=== PATIENT | female | born 1965 | race Caucasian/White ===

== ENCOUNTER 2017-10-24 00:04 | Emergency (ER) | payer MEDICAID, OTHER ==
[2017-10-24 00:04] VITALS: BMI 26.4
[2017-10-24] MEDS ORDERED: Sodium Chloride 0.9% 1,000 ML IV ONE (00:17)
--- NOTE | 2017-10-24 00:17 | C.PDOC ---
History Of Present Illness Patient states that she had a headache and took a tylenol with codeine, after which she developed sever mid epigastric pain, She has also consumed some spicy chips. No nausea or vomiting.Non radiating pain. 11/26. Has history of gastritis Time Seen by Provider: 10/24/17 00:06 Chief Complaint (Nursing): Abdominal Pain History Per: Patient History/Exam Limitations: no limitations Onset/Duration Of Symptoms: Hrs Current Symptoms Are (Timing): Still Present Context: Food, Other (tylenol and spicy chips) Severity: Moderate Pain Scale Rating Of: 5 Location Of Pain/Discomfort: Epigastric Radiation Of Pain To:: None Quality Of Discomfort: Sharp, Burning Associated Symptoms: denies: Fever, Chills, Nausea, Vomiting Exacerbating Factors: Food Alleviating Factors: None Last Bowel Movement: Yesterday Recent travel outside of the [place]: No Additional History Per: Family Abnormal Vaginal Bleeding: No Past Medical History Reviewed: Historical Data, Nursing Documentation, Vital Signs Vital Signs: Last Vital Signs Temp 97.5 F L 10/24/17 00:09 Pulse 70 10/24/17 00:09 Resp 16 10/24/17 00:09 BP 123/74 10/24/17 00:09 Pulse Ox 100 10/24/17 00:35 - Medical History PMH: Gall Bladder Disease (cholecystectomy 2 yrs. ago) Denies: Chronic Kidney Disease Surgical History: Cholecystectomy - [facility] Procedures LAPAROSCOPIC CHOLECYSTECTOMY (10/17/13) LAPAROSCOPIC ROBOTIC ASSISTED PROCEDURE (10/17/13) Family History: States: No Known Family Hx - Social History Hx Tobacco Use: No Hx Alcohol Use: No Hx Substance Use: No - Immunization History Hx Tetanus Toxoid Vaccination: No Hx Influenza Vaccination: No Hx Pneumococcal Vaccination: No Review Of Systems Constitutional: Negative for: Fever, Chills Eyes: Negative for: Redness ENT: Negative for: Throat Pain Cardiovascular: Negative for: Chest Pain Respiratory: Negative for: Shortness of Breath Gastrointestinal: Positive for: Abdominal Pain. Negative for: Nausea, Vomiting Genitourinary: Negative for: Dysuria Musculoskeletal: Negative for: Back Pain Skin: Negative for: Rash Neurological: Negative for: Weakness Psych: Negative for: Anxiety Physical Exam - Physical Exam Appears: Non-toxic Skin: Warm, Dry Head: Normacephalic Eye(s): bilateral: Normal Inspection Oral Mucosa: Moist Neck: Supple Chest: Symmetrical Cardiovascular: Rhythm Regular Respiratory: No Rales, No Rhonchi, No Wheezing Gastrointestinal/Abdominal: Bowel Sounds (tympanic to percussion), Soft, Tenderness (mid epigastric), No Distention, No Guarding, No Rebound Back: Normal Inspection Extremity: Normal ROM Extremity: Bilateral: Atraumatic Pulses: Left Dorsalis Pedis: Normal, Right Dorsalis Pedis: Normal Neurological/Psych: Oriented x3, Normal Speech, Normal Cognition Gait: Steady ED Course And Treatment - Laboratory Results Result Diagrams: 10/24/17 00:29 10/24/17 00:29 O2 Sat by Pulse Oximetry: 100 Pulse Ox Interpretation: Normal - Radiology CXR: Interpreted by Me, Viewed By Me CXR Interpretation: No: Infiltrates, Fracture, Pnemothorax Reevaluation Time: 02:37 Reassessment Condition: Improved Disposition Counseled Patient/Family Regarding: Studies Performed, Diagnosis, Need For Followup - Disposition Referrals: [facility] [Outside] [facility] [Outside] Daniel Garza MD [Staff Provider] - Disposition: HOME/ ROUTINE Disposition Time: 00:17 Condition: FAIR Additional Instructions: Please return if symptoms recur Prescriptions: Pantoprazole Sodium [Protonix] 20 mg PO DAILY #20 ect Instructions: Gastritis (DC), Ulcer and Gastritis Diet Forms: [employer] (Malay) Print Language: UPPER SORBIAN - Clinical Impression Clinical Impression: Abdominal pain, Gastritis
[2017-10-24] MEDS ORDERED: Sodium Chloride 0.9% 1,000 ML ONE (00:23)
[2017-10-24 00:33] LABS: BASO % 0.2 % (0.0-2.0); EOS # 0.1 K/uL (0.0-0.7); EOS % 0.8 % (0.0-4.0); HEMOGLOBIN 13.2 g/dL (11.0-16.0); LYMPH # 2.8 K/uL (1.0-4.3); LYMPH % 26.6 % (20.0-40.0); MEAN CELL VOLUME 83.3 fL (81.0-99.0); MEAN CORPUSCULAR HEMOGLOBIN 29.3 pg (27.0-31.0); MEAN CORPUSCULAR HGB CONC 35.2 g/dL (33.0-37.0); MEAN PLATELET VOLUME 8.3 fL (7.2-11.7); MONO # 0.7 K/uL (0.0-0.8); MONO % 6.4 % (0.0-10.0); NEUT # 6.9 K/uL (1.8-7.0); RBC 4.5 Mil/uL (3.80-5.20); WHITE BLOOD COUNT 10.5 K/uL (4.8-10.8)
[2017-10-24 00:41] LABS: PROTHROMBIN TIME 11.2 SECONDS (9.7-12.2)
[2017-10-24 00:45] LABS: ALB/GLOB RATIO 1.4 (1.0-2.1); ALBUMIN 4.3 g/dL (3.5-5.0); ALT/SGPT 145 U/L (9-52); AST/SGOT 215 U/L (14-36); BLOOD UREA NITROGEN 12 mg/dL (7-17); CALCIUM 9.2 mg/dl (8.6-10.4); GFR AFRICAN-AMERICAN > 60; GFR NON-AFRICAN AMERICAN > 60; LIPASE 152 U/L (23-300)
[2017-10-24] MEDS ORDERED: Iodixanol 320 MG/ML 100 ML BOTTLE IV ONE (01:16)
--- NOTE | 2017-10-24 02:22 | CT ---
EXAM: CT Abdomen and Pelvis With Intravenous Contrast CLINICAL HISTORY: 52 years old, female; Pain; Abdominal pain; Prior surgery; Surgery type: Cholecystectomy and hysterectomy; Additional info: Abd pain, elevated liver enzymes TECHNIQUE: Axial computed tomography images of the abdomen and pelvis with intravenous contrast. All CT scans at this facility use one or more dose reduction techniques, viz.: automated exposure control; ma/kV adjustment per patient size (including targeted exams where dose is matched to indication; i.e. head); or iterative reconstruction technique. 588 images are submitted. Coronal and sagittal reformatted images were created and reviewed. Axial reformatted images were created and reviewed. CONTRAST: 100 mL of [id number] administered intravenously. COMPARISON: No relevant prior studies available. FINDINGS: Lower thorax: There is bibasilar atelectasis. ABDOMEN: Liver: Mild fatty infiltration of the liver.. No mass. Gallbladder and bile ducts: Cholecystectomy. Pancreas: Unremarkable. No mass. No ductal dilation. Spleen: Unremarkable. No splenomegaly. Adrenals: Unremarkable. No mass. Kidneys and ureters: Unremarkable. No solid mass. No hydronephrosis. Stomach and bowel: Nonspecific gastric thickening likely due to under distention. Correlation with clinical data is recommended if gastritis is suspected.. No obstruction. No mucosal thickening. Possible diverticulosis. Appendix: The appendix is top normal in thickness. The distal appendix measures 0.8 cm. No surrounding inflammation or appendicolith is identified. PELVIS: Bladder: Partially distended bladder with bladder wall thickening and minimal haziness. Correlation with urinalysis is recommended only if clinical cystitis is suspected. Reproductive: Hysterectomy. ABDOMEN and PELVIS: Intraperitoneal space: Unremarkable. No free air. No significant fluid collection. Bones/joints: No acute fracture. No dislocation. Soft tissues: Unremarkable. Vasculature: Unremarkable. No abdominal aortic aneurysm. Lymph nodes: Unremarkable. No enlarged lymph nodes. IMPRESSION: No acute findings.
[2017-10-24 02:52] VITALS: BP 126/76; PULSE 72; RESP 20; TEMP 98; O2SAT 98
--- NOTE | 2017-10-24 07:51 | RAD ---
Chest x-ray single frontal view History: Abdominal pain. Comparison: None available. Findings: Mild venous congestion. Heart size within normal limits. Impression: Mild venous congestion.
--- NOTE | 2017-10-24 17:34 | CARD ---
APPROVED REPORT EKG Measurement Heart [id number] ID [id number] <Conclusion> Normal sinus rhythm Normal ECG
== END 2017-10-24 02:51 | disposition home or self-care (01) ==
LOC: C.ER 00:04
DX: K29.70 Gastritis, unspecified, without bleeding (principal); R10.13 Epigastric pain
CPT/HCPCS: 71045; 74177; 80053; 83690; 85025; 85610; 85730; 93005; 96361; 96374; 96375; 99283; J1885; J2405; J7040; Q9967